=== PATIENT | male | born 1960 | race Two or more races ===

== ENCOUNTER 2017-06-29 11:20 | Emergency (ER) | payer MEDICARE, OTHER ==
[~2017-06-29] VITALS: Ht 165.1 cm; Wt 102.1 kg
[~2017-06-29 11:20] MED LIST: BUME2 PO; CEPH500 PO; INSR10I SC; INSULANPEN SC; METF500 PO; MUPI2TO TOP; POTCHL20ER PO
[2017-06-29 12:37] LABS: BASOPHILS ABSOLUTE AUTO 0.03 K/mm3 (0.00-0.23); BASOPHILS PERCENT AUTO 0 % (0-2); EOSINOPHILS ABSOLUTE AUTO 0.05 K/mm3 (0.00-0.68); EOSINOPHILS PERCENT AUTO 1 % (0-6); Hematocrit 37.4 % (37.0-53.0); Hemoglobin 12.6 g/dL (13.5-17.5); IMMATURE GRAN ABSOLUTE AUTO 0.03 K/mm3 (0.00-0.10); IMMATURE GRAN PERCENT AUTO 0 % (0-1); LYMPHOCYTES ABSOLUTE AUTO 1.44 K/mm3 (0.84-5.20); LYMPHOCYTES PERCENT AUTO 15 % (21-46); MONOCYTES ABSOLUTE AUTO 0.78 K/mm3 (0.16-1.47); MONOCYTES PERCENT AUTO 8 % (4-13); Mean Corpuscular HGB 30.1 pg (26.0-34.0); Mean Corpuscular HGB Conc 33.7 g/dL (31.5-36.5); Mean Corpuscular Volume 89 fL (80-100); Mean Platelet Volume 10.4 fL (9.1-12.4); NEUTROPHILS PERCENT AUTO 76 % (41-73); Platelet Count 372 K/mm3 (150-400); RDW Coefficient Variation 13.8 % (11.7-14.2); RDW Standard Deviation 44.8 fL (35.1-46.3); Red Blood Cell Count 4.19 M/mm3 (4.30-5.90); White Blood Cell Count 9.53 K/mm3 (4.00-11.30)
[2017-06-29 12:51] LABS: Albumin, Blood 3.5 g/dL (3.4-5.0); Albumin/Globulin Ratio 0.6 (0.8-1.8); Bilirubin, Total 0.5 mg/dL (0.1-1.0); Bun/Creatinine Ratio 7.6 (12.0-20.0); Creatinine, Blood 5.23 mg/dL (0.60-1.20); Globulin, Blood 5.8 g/dL (2.2-4.0); Potassium, Blood 4.1 mmol/L (3.5-5.5); Total Protein, Blood 9.3 g/dL (6.4-8.2)
[2017-06-29] MEDS ORDERED: Norco 5-325 Ta1 EACH PO (17:53)
[2017-06-29] MEDS ORDERED: Zithromax250 MG PO (17:53)
== END 2017-06-29 18:07 | disposition home or self-care (01) ==
LOC: ER 11:20
PROVIDERS: Emergency Medicine
DX: R09.1 Pleurisy (principal); I12.0 Hypertensive chronic kidney disease with stage 5 chronic kidney disease or end stage renal disease; E11.22 Type 2 diabetes mellitus with diabetic chronic kidney disease; N18.6 End stage renal disease; Z79.4 Long term (current) use of insulin; Z79.899 Other long term (current) drug therapy
CPT/HCPCS: 36415; 71046; 80053; 83690; 84484; 85025; 93005; 93010; 96374; 99283; J2405

== ENCOUNTER 2019-08-11 13:36 | Emergency (ER) | payer MEDICARE ==
[~2019-08-11] VITALS: Ht 165.1 cm; Wt 104.3 kg
[~2019-08-11 13:36] MED LIST changes: +Norco 5-325 Ta1 EACH PO; +Zithromax250 MG PO
[2019-08-11] MEDS ORDERED: ZOLOFT50 MG PO (14:44)
[2019-08-11] MEDS ORDERED: LOSA50 PO (14:44)
[2019-08-11] MEDS ORDERED: FURO80 PO (14:45)
[2019-08-11] MEDS ORDERED: VELPHORO500 MG PO (14:45)
[2019-08-11] MEDS ORDERED: Temazepam30 MG PO (14:45)
== END 2019-08-11 16:28 | disposition home or self-care (01) ==
LOC: ER 13:36
DX: T82.590A Other mechanical complication of surgically created arteriovenous fistula, initial encounter (principal); I10 Essential (primary) hypertension; E11.9 Type 2 diabetes mellitus without complications; Z99.2 Dependence on renal dialysis; Z79.4 Long term (current) use of insulin; Z79.899 Other long term (current) drug therapy
CPT/HCPCS: 93971; 99283-25

== ENCOUNTER 2020-05-16 12:12 | Emergency (ER) | payer MEDICARE ==
[~2020-05-16] VITALS: Ht 165.1 cm; Wt 105.0 kg
[~2020-05-16 12:12] MED LIST changes: +FURO80 PO; +HUMULIN R100 UNIT/2 SC; -INSR10I SC; +LOSA50 PO; +Temazepam30 MG PO; +VELPHORO500 MG PO; +ZOLOFT50 MG PO
[2020-05-16 12:47] LABS: BASOPHILS ABSOLUTE AUTO 0.04 K/mm3 (0.00-0.23); BASOPHILS PERCENT AUTO 0 % (0-2); EOSINOPHILS ABSOLUTE AUTO 0.18 K/mm3 (0.00-0.68); EOSINOPHILS PERCENT AUTO 2 % (0-6); Hematocrit 34.2 % (37.0-53.0); Hemoglobin 11.5 g/dL (13.5-17.5); IMMATURE GRAN ABSOLUTE AUTO 0.04 K/mm3 (0.00-0.10); IMMATURE GRAN PERCENT AUTO 0 % (0-1); LYMPHOCYTES ABSOLUTE AUTO 2.18 K/mm3 (0.84-5.20); LYMPHOCYTES PERCENT AUTO 22 % (21-46); MONOCYTES PERCENT AUTO 8 % (4-13); Mean Corpuscular HGB 31.9 pg (26.0-34.0); Mean Corpuscular HGB Conc 33.6 g/dL (31.5-36.5); Mean Corpuscular Volume 95 fL (80-100); Mean Platelet Volume 9.8 fL (9.1-12.4); NEUTROPHILS PERCENT AUTO 67 % (41-73); Platelet Count 414 K/mm3 (150-400); Red Blood Cell Count 3.61 M/mm3 (4.30-5.90); White Blood Cell Count 9.84 K/mm3 (4.00-11.30)
[2020-05-16 13:17] LABS: Albumin, Blood 3.3 g/dL (3.4-5.0); Albumin/Globulin Ratio 0.6 (0.8-1.8); Bilirubin, Total 0.3 mg/dL (0.1-1.0); Bun/Creatinine Ratio 7.4 (12.0-20.0); Calcium, Blood 9.1 mg/dL (8.5-10.1); Creatinine, Blood 4.44 mg/dL (0.60-1.20); Globulin, Blood 5.6 g/dL (2.2-4.0); Potassium, Blood 3.7 mmol/L (3.5-5.5); Total Protein, Blood 8.9 g/dL (6.4-8.2)
== END 2020-05-16 15:40 | disposition home or self-care (01) ==
LOC: ER 12:12
PROVIDERS: Emergency Medicine
DX: I95.9 Hypotension, unspecified (principal); S09.90XA Unspecified injury of head, initial encounter; E11.22 Type 2 diabetes mellitus with diabetic chronic kidney disease; N18.6 End stage renal disease; I10 Essential (primary) hypertension; Z99.2 Dependence on renal dialysis; Z79.899 Other long term (current) drug therapy; Z79.4 Long term (current) use of insulin
CPT/HCPCS: 70450; 80053; 84484; 85025; 93005; 93010; 99285-25

== ENCOUNTER 2020-07-17 13:03 | Emergency (ER) | payer MEDICARE ==
[~2020-07-17] VITALS: Ht 165.1 cm; Wt 106.6 kg
[2020-07-17] MEDS ORDERED: CALCIUM ACETAT667 M2 PO (13:40)
[2020-07-17] MEDS ORDERED: GABA100 PO (13:41)
[2020-07-17] MEDS ORDERED: TADA10TA PO (13:45)
[2020-07-17] MEDS ORDERED: FAMO40 PO (13:47)
[2020-07-17] MEDS ORDERED: MIDO5 PO (13:48)
[2020-07-17] MEDS ORDERED: SEMGLEE100 UNIT/1 SC (13:49)
[2020-07-17] MEDS ORDERED: Vitamin B-121000 MCG PO (13:52)
[2020-07-17] MEDS ORDERED: FISH OIL 1,2001 EAC4 PO (13:53)
[2020-07-17] MEDS ORDERED: VITAMIN D325 MC3 PO (13:53)
[2020-07-17] MEDS ORDERED: MERIBIN5 M1 PO (13:54)
[2020-07-17] MEDS ORDERED: Rena-Vite Tabl0.8 MG PO (13:55)
[2020-07-17] MEDS ORDERED: ZYRTEC10 M3 PO (14:02)
== END 2020-07-17 15:07 | disposition home or self-care (01) ==
LOC: ER 13:03
DX: L23.9 Allergic contact dermatitis, unspecified cause (principal); I10 Essential (primary) hypertension; E11.9 Type 2 diabetes mellitus without complications; Z79.4 Long term (current) use of insulin; Z79.899 Other long term (current) drug therapy
CPT/HCPCS: 99283; A9270

== ENCOUNTER 2021-04-03 02:56 | Inpatient (IN) | payer MEDICARE ==
[~2021-04-03] VITALS: Ht 165.1 cm; Wt 106.1 kg
[~2021-04-03 02:56] MED LIST changes: +CALCIUM ACETAT667 M2 PO; +FAMO40 PO; +FISH OIL 1,2001 EAC4 PO; +GABA100 PO; +MERIBIN5 M1 PO; +MIDO5 PO; +Rena-Vite Tabl0.8 MG PO; +SEMGLEE100 UNIT/1 SC; +TADA10TA PO; +VITAMIN D325 MC3 PO; +Vitamin B-121000 MCG PO; +ZYRTEC10 M3 PO
[2021-04-03 04:31] LABS: BASOPHILS ABSOLUTE AUTO 0.03 K/mm3 (0.00-0.23); BASOPHILS PERCENT AUTO 0 % (0-2); EOSINOPHILS ABSOLUTE AUTO 0.25 K/mm3 (0.00-0.68); EOSINOPHILS PERCENT AUTO 3 % (0-6); Hematocrit 29.8 % (37.0-53.0); Hemoglobin 10.1 g/dL (13.5-17.5); IMMATURE GRAN ABSOLUTE AUTO 0.02 K/mm3 (0.00-0.10); IMMATURE GRAN PERCENT AUTO 0 % (0-1); LYMPHOCYTES ABSOLUTE AUTO 2.33 K/mm3 (0.84-5.20); LYMPHOCYTES PERCENT AUTO 26 % (21-46); MONOCYTES ABSOLUTE AUTO 1.13 K/mm3 (0.16-1.47); MONOCYTES PERCENT AUTO 13 % (4-13); Mean Corpuscular HGB 31.1 pg (26.0-34.0); Mean Corpuscular HGB Conc 33.9 g/dL (31.5-36.5); Mean Corpuscular Volume 92 fL (80-100); Mean Platelet Volume 10.3 fL (9.1-12.4); NEUTROPHILS ABSOLUTE AUTO 5.29 K/mm3 (1.96-9.15); NEUTROPHILS PERCENT AUTO 59 % (41-73); Platelet Count 316 K/mm3 (150-400); RDW Coefficient Variation 13.5 % (11.7-14.2); RDW Standard Deviation 45.6 fL (35.1-46.3); Red Blood Cell Count 3.25 M/mm3 (4.30-5.90); White Blood Cell Count 9.05 K/mm3 (4.00-11.30)
[2021-04-03 05:04] LABS: Magnesium, Blood 2.5 mg/dL (1.6-2.4); Troponin I 0.207 ng/mL (0.000-0.040)
[2021-04-03 05:19] LABS: Albumin, Blood 3.1 g/dL (3.4-5.0); Albumin/Globulin Ratio 0.6 (0.8-1.8); Bilirubin, Total 0.3 mg/dL (0.1-1.0); Bun/Creatinine Ratio 8.8 (12.0-20.0); Calcium, Blood 8.8 mg/dL (8.5-10.1); Creatinine, Blood 8.86 mg/dL (0.60-1.20); Globulin, Blood 4.9 g/dL (2.2-4.0); Potassium, Blood 5.2 mmol/L (3.5-5.5)
--- NOTE | 2021-04-03 17:54 | NUR ---
PT ARRIVED FROM ER AND DIALYSIS. HTN HAS RESOLVED WITH DIALYSIS. PT A/O X4, ANSWERING QUESTIONS APPROPRIATELY WITH AID OF WEB SPECIALIST. PT DOES UNDERSTAND [place] WELL BUT DOES NOT SPEAK IT WELL. VSS. DENIES SOB OR CP. SKIN PWD AND INTACT. NADN. PT RESTING WELL IN BED TALKING ON PHONE AND WATCHING TV. GOOD APPETITE. TALKES PO MEDS W/O DIFF
[2021-04-04 05:08] LABS: BASOPHILS ABSOLUTE AUTO 0.04 K/mm3 (0.00-0.23); BASOPHILS PERCENT AUTO 0 % (0-2); EOSINOPHILS ABSOLUTE AUTO 0.21 K/mm3 (0.00-0.68); EOSINOPHILS PERCENT AUTO 2 % (0-6); Hematocrit 30.8 % (37.0-53.0); Hemoglobin 10.2 g/dL (13.5-17.5); IMMATURE GRAN ABSOLUTE AUTO 0.04 K/mm3 (0.00-0.10); IMMATURE GRAN PERCENT AUTO 0 % (0-1); LYMPHOCYTES ABSOLUTE AUTO 2.03 K/mm3 (0.84-5.20); LYMPHOCYTES PERCENT AUTO 18 % (21-46); MONOCYTES PERCENT AUTO 10 % (4-13); Mean Corpuscular HGB 30.7 pg (26.0-34.0); Mean Corpuscular HGB Conc 33.1 g/dL (31.5-36.5); Mean Corpuscular Volume 93 fL (80-100); Mean Platelet Volume 10.3 fL (9.1-12.4); NEUTROPHILS PERCENT AUTO 70 % (41-73); Platelet Count 308 K/mm3 (150-400); RDW Coefficient Variation 13.9 % (11.7-14.2); Red Blood Cell Count 3.32 M/mm3 (4.30-5.90); White Blood Cell Count 11.32 K/mm3 (4.00-11.30)
--- NOTE | 2021-04-04 05:35 | NUR ---
SHIFT SUMMARY PATIENT A AFGHAN SPEAKING ONLY WHO IS A&OX4 AND UP IND IN ROOM. HTN RETURNING POST HD AND PRN HYDRALIZNE AND LABETOLOL GIVEN WITH DECENT RELIEF. ORAL LASIX GIVEN AND ALSO HELPED WITH THIS. NSR IN THE 80'S. ON RA. NO PAIN OR DISTRESS NOTED UPON ASSESSMENT. TOLERATING CARDIAC DIET WITHOUT ISSUE. UP WITH STAND BY ASSIST IN ROOM AND NO DIZZINESS NOTED. VOIDING WELL PER URINAL WITH OLIGURIA R/T HD. NO ACUTE CONCERNS AT THIS TIME. АЛЕКСАНДР CONTINUE PLAN OF CARE UNTIL REPORT GIVEN TO GERRI PERSAUD.
[2021-04-04 06:16] LABS: Magnesium, Blood 2.7 mg/dL (1.6-2.4)
[2021-04-04 06:25] LABS: Anion Gap 10 mmol/L (6-16); Blood Urea Nitrogen 69 mg/dL (8-24); Bun/Creatinine Ratio 7.9 (12.0-20.0); CO2, Blood 28 mmol/L (21-32); Calcium, Blood 8.9 mg/dL (8.5-10.1); Chloride, Blood 96 mmol/L (98-108); Creatinine, Blood 8.69 mg/dL (0.60-1.20); Glomerular Filtration Rate 6 (60-); Glucose, Blood 117 mg/dL (70-99); Phosphorus, Blood 6.4 mg/dL (2.5-4.9); Sodium, Blood 134 mmol/L (136-145)
--- NOTE | 2021-04-04 18:25 | NUR ---
PT RECIEVED DIALYSIS TODAY FOR HYPERKALEMIA. PT'S BP HAS BEEN IN ACCEPTABLE RANGE T/O THE DAY, THERE WAS AN ADD ON OF CLONIDINE TO PT'S BP MEDICATIONS. PT A/O X4. PT INTERACTING WITH USE OF SON TO INTERPERIT. LS DIM T/O. DENIES CP OR SOB. PT ALSO WITH ADD ON OF ANTIBIOTICS FOR PNA. PT WAS MADE MEDICAL STATUS WITH TELE. OTHERWISE THERE WERE NO CHANGES THIS SHIFT
[2021-04-05 04:24] LABS: BASOPHILS ABSOLUTE AUTO 0.02 K/mm3 (0.00-0.23); BASOPHILS PERCENT AUTO 0 % (0-2); EOSINOPHILS ABSOLUTE AUTO 0.21 K/mm3 (0.00-0.68); EOSINOPHILS PERCENT AUTO 3 % (0-6); Hematocrit 31.4 % (37.0-53.0); Hemoglobin 10.4 g/dL (13.5-17.5); IMMATURE GRAN ABSOLUTE AUTO 0.01 K/mm3 (0.00-0.10); IMMATURE GRAN PERCENT AUTO 0 % (0-1); LYMPHOCYTES ABSOLUTE AUTO 2.42 K/mm3 (0.84-5.20); LYMPHOCYTES PERCENT AUTO 33 % (21-46); MONOCYTES ABSOLUTE AUTO 0.81 K/mm3 (0.16-1.47); MONOCYTES PERCENT AUTO 11 % (4-13); Mean Corpuscular HGB 30.7 pg (26.0-34.0); Mean Corpuscular HGB Conc 33.1 g/dL (31.5-36.5); Mean Corpuscular Volume 93 fL (80-100); Mean Platelet Volume 10.2 fL (9.1-12.4); NEUTROPHILS ABSOLUTE AUTO 3.79 K/mm3 (1.96-9.15); NEUTROPHILS PERCENT AUTO 52 % (41-73); Platelet Count 292 K/mm3 (150-400); RDW Coefficient Variation 14.2 % (11.7-14.2); RDW Standard Deviation 47.9 fL (35.1-46.3); Red Blood Cell Count 3.39 M/mm3 (4.30-5.90); White Blood Cell Count 7.26 K/mm3 (4.00-11.30)
--- NOTE | 2021-04-05 05:11 | NUR ---
PATIENT HAD SBP > 160 X 1, PRN HYDRALYZINE GIVEN ONE TIME WITH GOOD RESULT.
[2021-04-05 05:20] LABS: Magnesium, Blood 2.3 mg/dL (1.6-2.4)
[2021-04-05 05:37] LABS: Albumin, Blood 3.1 g/dL (3.4-5.0); Anion Gap 12 mmol/L (6-16); Blood Urea Nitrogen 58 mg/dL (8-24); Bun/Creatinine Ratio 7.1 (12.0-20.0); CO2, Blood 29 mmol/L (21-32); Calcium, Blood 9.6 mg/dL (8.5-10.1); Chloride, Blood 96 mmol/L (98-108); Creatinine, Blood 8.19 mg/dL (0.60-1.20); Glomerular Filtration Rate 7 (60-); Glucose, Blood 76 mg/dL (70-99); Phosphorus, Blood 5.8 mg/dL (2.5-4.9); Potassium, Blood 4.6 mmol/L (3.5-5.5); Sodium, Blood 137 mmol/L (136-145)
--- NOTE | 2021-04-05 09:48 | NUR ---
CARE ASSUMPTION THIS RN ASSUMED CARE AT 0700 FROM HATTIE PERSAUD. PATIENT IS A/OX4, AND IS DIVEHI SPEAKING ONLY. VSS. PATIENT IS MED NO TELE. PATIENT REPORTS NO CHEST PAIN, PAIN, OR SOB. FISTULA HAS A THRILL AND CAN HEAR. PATIENT IS INDEPEDENT IN THE ROOM. MD IN TO SEE PATIENT THIS MORNING AND PLAN IS TO POSSIBLY DISCHARGE HOME TODATY. CALL LIGHT WITHIN REACH AND BED IN LOWEST POSITION. WILL CONTINUE TO MONITOR AND PROVIDE CARE.
[2021-04-05] MEDS ORDERED: AZIT500 PO (14:02)
[2021-04-05] MEDS ORDERED: CATAPRES0.1 MG PO (14:03)
[2021-04-05] MEDS ORDERED: VISBIOME 112.51 EACH PO (14:04)
[2021-04-05] MEDS ORDERED: CEFD300 PO (14:04)
--- NOTE | 2021-04-05 15:40 | NUR ---
DISCHARGE THIS RN WITH THE ASSITANCE OF GUY BLACKMAN, PROVIDED PATIENT EDUCATION AND DISCHARGE INSTRUCTIONS. THIS RN TOOK OUT THE PATIENT IV. PATIENT IS AWAITING FOR HIS RIDE AND THEN WILL BE WALKED OUT TO THE RIDE.
--- NOTE | 2021-04-05 16:21 | NUR ---
DISCHARGE PATIENT LEFT APROX 1600 VIA WHEELCHAIR TO NIECE. PATIENT HAD ALL BELONGINGS. PATIENT WAS A/0X4. VSS. PATIENT HAD NO ACUTE CHANGES THIS SHIFT PRIOR TO DISCHARGE.
== END 2021-04-05 15:56 | disposition home or self-care (01) | DRG 304 ==
LOC: ER 02:56 → ERHOLD 06:32 → PCU 06:32
PROVIDERS: Internal Medicine Nephrology; Student in an Organized Health Care Education/Training Program; ADMIT Family Medicine
PROC: 5A1D70Z Performance of Urinary Filtration, Intermittent, Less than 6 Hours Per Day (ICD-10-PCS; principal; 2021-04-03)
PROC: 5A1D70Z Performance of Urinary Filtration, Intermittent, Less than 6 Hours Per Day (ICD-10-PCS; 2021-04-04)
DX: I16.1 Hypertensive emergency (principal); N18.6 End stage renal disease; I50.33 Acute on chronic diastolic (congestive) heart failure; J18.9 Pneumonia, unspecified organism; E87.1 Hypo-osmolality and hyponatremia; N25.81 Secondary hyperparathyroidism of renal origin; E11.22 Type 2 diabetes mellitus with diabetic chronic kidney disease; I13.2 Hypertensive heart and chronic kidney disease with heart failure and with stage 5 chronic kidney disease, or end stage renal disease; E66.9 Obesity, unspecified; E78.5 Hyperlipidemia, unspecified; D63.1 Anemia in chronic kidney disease; E87.70 Fluid overload, unspecified; E87.5 Hyperkalemia; R79.89 Other specified abnormal findings of blood chemistry; Z68.38 Body mass index [BMI] 38.0-38.9, adult; Z99.2 Dependence on renal dialysis; Z79.899 Other long term (current) drug therapy; Z79.4 Long term (current) use of insulin
CPT/HCPCS: 36415; 70450; 71046; 80053; 80069; 82947; 83735; 83880; 84484; 85025; 93005; 93010; 93306; 96372; 96374; 96375; 99285-25; A9270; J0360; J0696; J1644; J1815

== ENCOUNTER 2021-09-03 23:51 | Inpatient (IN) | payer MEDICARE ==
[~2021-09-03] VITALS: Ht 165.1 cm; Wt 104.0 kg
[~2021-09-03 23:51] MED LIST changes: +AZIT500 PO; +CATAPRES0.1 MG PO; +CEFD300 PO; -SEMGLEE100 UNIT/1 SC; +VISBIOME 112.51 EACH PO
[2021-09-04 00:26] LABS: BASOPHILS ABSOLUTE AUTO 0.03 K/mm3 (0.00-0.23); BASOPHILS PERCENT AUTO 0 % (0-2); EOSINOPHILS ABSOLUTE AUTO 0.08 K/mm3 (0.00-0.68); EOSINOPHILS PERCENT AUTO 1 % (0-6); Hematocrit 35.9 % (37.0-53.0); Hemoglobin 11.5 g/dL (13.5-17.5); IMMATURE GRAN ABSOLUTE AUTO 0.02 K/mm3 (0.00-0.10); IMMATURE GRAN PERCENT AUTO 0 % (0-1); LYMPHOCYTES PERCENT AUTO 8 % (21-46); MONOCYTES ABSOLUTE AUTO 0.94 K/mm3 (0.16-1.47); MONOCYTES PERCENT AUTO 11 % (4-13); Mean Corpuscular HGB 29.8 pg (26.0-34.0); Mean Corpuscular Volume 93 fL (80-100); Mean Platelet Volume 10.9 fL (9.1-12.4); NEUTROPHILS PERCENT AUTO 80 % (41-73); Platelet Count 214 K/mm3 (150-400); RDW Standard Deviation 51.4 fL (35.1-46.3); Red Blood Cell Count 3.86 M/mm3 (4.30-5.90); White Blood Cell Count 8.67 K/mm3 (4.00-11.30)
[2021-09-04 06:57] LABS: Albumin, Blood 3.5 g/dL (3.4-5.0); Albumin/Globulin Ratio 0.7 (0.8-1.8); Bilirubin, Total 0.4 mg/dL (0.1-1.0); Bun/Creatinine Ratio 7.9 (12.0-20.0); Calcium, Blood 9.1 mg/dL (8.5-10.1); Creatinine, Blood 8.51 mg/dL (0.60-1.20); Globulin, Blood 5.2 g/dL (2.2-4.0); Potassium, Blood 5.7 mmol/L (3.5-5.5); Total Protein, Blood 8.7 g/dL (6.4-8.2)
[2021-09-04 07:24] LABS: PCO2 Arterial 40.2 mmHg (35-45); PO2 Arterial 85.5 mmHg (80-100); pH Blood Arterial 7.34 (7.35-7.45)
[2021-09-04 07:25] LABS: Base Excess Venous 6.3 mmol/L; Bicarbonate Venous 28.3 mmol/L (24.0-30.0); PCO2 Venous 49.9 mmHg (38-42); PO2 Venous 30.9 mmHg (38-42)
[2021-09-04 07:30] LABS: Influenza A, PCR NEGATIVE (NEGATIVE); Influenza B, PCR NEGATIVE (NEGATIVE); Resp Syncytial Virus, PCR NEGATIVE (NEGATIVE)
[2021-09-04 07:48] LABS: SARS-Cov-2 (COVID-19) PCR, MMC POSITIVE (NEGATIVE)
[2021-09-04 08:20] LABS: Anti-Xa UFH, PHA Monitoring <0.10 IU/mL; International Normalized Ratio 1.23; Prothrombin Time Results 12.7 Sec (9.7-11.5)
[2021-09-04 08:27] LABS: Appearance, Urine Clear (Clear); Bilirubin, Urine Neg (Neg); Blood, Urine 4+ (Neg); Color, Urine Yellow (P-Yellow); Glucose Qualitative, Urine 2+ (Neg); Ketones, Urine Neg (Neg); Leukocyte Esterase, Urine Neg (Neg); Nitrite, Urine Neg (Neg); Protein, Urine 4+ (Neg); Source, Urine Clean Catch; Specific Gravity, Urine 1.015 (1.003-1.022); Urobilinogen, Urine NORM (Normal)
[2021-09-04 08:29] LABS: Bacteria Few /hpf; Squamous Epithelial Cells Rare /hpf (Few)
[2021-09-04 08:30] LABS: White Blood Cells, Urine 0-2 /hpf (0-5)
[2021-09-04 12:36] LABS: Bun/Creatinine Ratio 8.1 (12.0-20.0); Calcium, Blood 9.2 mg/dL (8.5-10.1); Creatinine, Blood 5.05 mg/dL (0.60-1.20)
[2021-09-05 03:36] LABS: Hematocrit 32.1 % (37.0-53.0); Hemoglobin 10.5 g/dL (13.5-17.5)
[2021-09-05 03:58] LABS: Albumin, Blood 3.1 g/dL (3.4-5.0); Anion Gap 10 mmol/L (6-16); Blood Urea Nitrogen 60 mg/dL (8-24); Bun/Creatinine Ratio 7.9 (12.0-20.0); CO2, Blood 32 mmol/L (21-32); Calcium, Blood 8.7 mg/dL (8.5-10.1); Chloride, Blood 92 mmol/L (98-108); Creatinine, Blood 7.63 mg/dL (0.60-1.20); Glomerular Filtration Rate 8 (60-); Glucose, Blood 86 mg/dL (70-99); Magnesium, Blood 2.5 mg/dL (1.6-2.4); Phosphorus, Blood 6.1 mg/dL (2.5-4.9); Potassium, Blood 4.8 mmol/L (3.5-5.5); Sodium, Blood 134 mmol/L (136-145)
[2021-09-05 08:58] LABS: BASOPHILS ABSOLUTE AUTO 0.03 K/mm3 (0.00-0.23); BASOPHILS PERCENT AUTO 1 % (0-2); EOSINOPHILS ABSOLUTE AUTO 0.01 K/mm3 (0.00-0.68); EOSINOPHILS PERCENT AUTO 0 % (0-6); Hematocrit 32.7 % (37.0-53.0); Hemoglobin 10.7 g/dL (13.5-17.5); IMMATURE GRAN ABSOLUTE AUTO 0.02 K/mm3 (0.00-0.10); IMMATURE GRAN PERCENT AUTO 0 % (0-1); LYMPHOCYTES ABSOLUTE AUTO 1.12 K/mm3 (0.84-5.20); LYMPHOCYTES PERCENT AUTO 22 % (21-46); MONOCYTES PERCENT AUTO 17 % (4-13); Mean Corpuscular HGB 30.3 pg (26.0-34.0); Mean Corpuscular HGB Conc 32.7 g/dL (31.5-36.5); Mean Corpuscular Volume 93 fL (80-100); Mean Platelet Volume 11.1 fL (9.1-12.4); NEUTROPHILS ABSOLUTE AUTO 3.08 K/mm3 (1.96-9.15); NEUTROPHILS PERCENT AUTO 60 % (41-73); Platelet Count 194 K/mm3 (150-400); RDW Coefficient Variation 15.3 % (11.7-14.2); Red Blood Cell Count 3.53 M/mm3 (4.30-5.90); White Blood Cell Count 5.16 K/mm3 (4.00-11.30)
[2021-09-05 09:21] LABS: CHOL/HDL RATIO 3.8; Cholesterol 158 mg/dL (50-200); HDL Cholesterol 42 mg/dL (>39); LDL/HDL RATIO 2.1; Low Density Lipoprotein Chol 87 mg/dL (0-110); Triglycerides 147 mg/dL (30-160); Very Low Density Lipoprot Chol 29 mg/dL (6-32)
[2021-09-06 03:34] LABS: BASOPHILS ABSOLUTE AUTO 0.02 K/mm3 (0.00-0.23); BASOPHILS PERCENT AUTO 1 % (0-2); EOSINOPHILS ABSOLUTE AUTO 0.01 K/mm3 (0.00-0.68); EOSINOPHILS PERCENT AUTO 0 % (0-6); Hematocrit 32.9 % (37.0-53.0); Hemoglobin 10.9 g/dL (13.5-17.5); IMMATURE GRAN ABSOLUTE AUTO 0.01 K/mm3 (0.00-0.10); IMMATURE GRAN PERCENT AUTO 0 % (0-1); LYMPHOCYTES PERCENT AUTO 36 % (21-46); MONOCYTES ABSOLUTE AUTO 0.66 K/mm3 (0.16-1.47); MONOCYTES PERCENT AUTO 16 % (4-13); Mean Corpuscular HGB 30.2 pg (26.0-34.0); Mean Corpuscular HGB Conc 33.1 g/dL (31.5-36.5); Mean Corpuscular Volume 91 fL (80-100); Mean Platelet Volume 10.9 fL (9.1-12.4); NEUTROPHILS ABSOLUTE AUTO 2.02 K/mm3 (1.96-9.15); NEUTROPHILS PERCENT AUTO 48 % (41-73); Platelet Count 211 K/mm3 (150-400); RDW Coefficient Variation 15.1 % (11.7-14.2); RDW Standard Deviation 51.5 fL (35.1-46.3); Red Blood Cell Count 3.61 M/mm3 (4.30-5.90); White Blood Cell Count 4.22 K/mm3 (4.00-11.30)
[2021-09-06 03:53] LABS: Albumin, Blood 3.2 g/dL (3.4-5.0); Albumin/Globulin Ratio 0.7 (0.8-1.8); Bilirubin, Total 0.4 mg/dL (0.1-1.0); Bun/Creatinine Ratio 7.3 (12.0-20.0); Calcium, Blood 8.6 mg/dL (8.5-10.1); Creatinine, Blood 7.77 mg/dL (0.60-1.20); Globulin, Blood 4.9 g/dL (2.2-4.0); Potassium, Blood 4.1 mmol/L (3.5-5.5); Total Protein, Blood 8.1 g/dL (6.4-8.2)
[2021-09-06] MEDS ORDERED: TRAM50 PO (18:38)
[2021-09-06] MEDS ORDERED: 1/2 NS 250ml250 ML (18:40)
[2021-09-06] MEDS ORDERED: CLOBET30L TOP (18:40)
[2021-09-07 07:56] LABS: Hematocrit 33.9 % (37.0-53.0)
[2021-09-07] MEDS ORDERED: AMOX875 PO (11:19)
[2021-09-07] MEDS ORDERED: VISBIOME 112.51 EACH PO (11:22)
[2021-09-07] MEDS ORDERED: CARV3.125 PO (11:26)
== END 2021-09-07 12:00 | disposition home or self-care (01) | DRG 193 ==
LOC: ER 23:51 → PCU 09-04 04:00
PROVIDERS: Internal Medicine Nephrology; Student in an Organized Health Care Education/Training Program; ADMIT Internal Medicine
PROC: 5A1D70Z Performance of Urinary Filtration, Intermittent, Less than 6 Hours Per Day (ICD-10-PCS; principal; 2021-09-04)
PROC: 8E0ZXY6 Isolation (ICD-10-PCS; 2021-09-04)
DX: J18.9 Pneumonia, unspecified organism (principal); U07.1 COVID-19; N18.6 End stage renal disease; I50.32 Chronic diastolic (congestive) heart failure; I13.2 Hypertensive heart and chronic kidney disease with heart failure and with stage 5 chronic kidney disease, or end stage renal disease; N25.81 Secondary hyperparathyroidism of renal origin; E87.1 Hypo-osmolality and hyponatremia; I24.8 Other forms of acute ischemic heart disease; R10.9 Unspecified abdominal pain; E87.70 Fluid overload, unspecified; E11.22 Type 2 diabetes mellitus with diabetic chronic kidney disease; D64.9 Anemia, unspecified; R60.1 Generalized edema; E87.5 Hyperkalemia; Z99.2 Dependence on renal dialysis; Z98.890 Other specified postprocedural states; Z79.2 Long term (current) use of antibiotics; Z79.4 Long term (current) use of insulin; Z79.899 Other long term (current) drug therapy; Z91.14 Patient's other noncompliance with medication regimen; Z88.8 Allergy status to other drugs, medicaments and biological substances
CPT/HCPCS: 0241U; 36415; 36600; 71045; 71260; 74176; 78452; 80048; 80053; 80061; 80069; 81001; 82803; 82947; 83036; 83605; 83690; 83735; 84132; 84484; 85014; 85018; 85025; 85379; 85520; 85610; 87040; 93005; 93010; 93017; 93306; 94761; 96374; 96375; 99285-25; A9270; A9500; C1751; J0280; J0360; J0456; J0610; J0696; J0881; J1644; J1815; J2405; J2785; J7030; J7050; Q9967

== ENCOUNTER → 2021-11-28 | Outpatient (CLI) | payer MEDICARE ==
[~2021-11-28] MED LIST changes: +1/2 NS 250ml250 ML; +AMOX875 PO; +CARV3.125 PO; +CLOBET30L TOP; +DOCU100 PO; +FLONASE ALLERG9.9 M2 NS; +TRAM50 PO
== END | disposition home or self-care (01) ==
LOC: LAB SHORT 14:48 → LAB 14:48
DX: L08.9 Local infection of the skin and subcutaneous tissue, unspecified (principal)
CPT/HCPCS: 87070; 87106; 87205

== ENCOUNTER 2021-12-04 01:23 | Day surgery (SDC) | payer MEDICARE | END 2021-12-04 23:40 | disposition home or self-care (01) | LOC: WOUND 01:23 | DX: E11.622 Type 2 diabetes mellitus with other skin ulcer (principal); L97.222 Non-pressure chronic ulcer of left calf with fat layer exposed; L97.212 Non-pressure chronic ulcer of right calf with fat layer exposed; I87.2 Venous insufficiency (chronic) (peripheral); E11.51 Type 2 diabetes mellitus with diabetic peripheral angiopathy without gangrene; E11.59 Type 2 diabetes mellitus with other circulatory complications; I11.0 Hypertensive heart disease with heart failure; I50.9 Heart failure, unspecified | CPT/HCPCS: A9270; G0463 ==

== ENCOUNTER 2021-12-11 02:03 | Day surgery (SDC) | payer MEDICARE | END 2021-12-11 23:25 | disposition home or self-care (01) | LOC: WOUND 02:03 | PROC: 2W1RX6Z Compression of Left Lower Leg using Pressure Dressing (ICD-10-PCS; principal; 2021-12-11) | PROC: 2W1QX6Z Compression of Right Lower Leg using Pressure Dressing (ICD-10-PCS; principal; 2021-12-11) | PROC: 0JBN0ZZ Excision of Right Lower Leg Subcutaneous Tissue and Fascia, Open Approach (ICD-10-PCS; principal; 2021-12-11) | DX: E11.51 Type 2 diabetes mellitus with diabetic peripheral angiopathy without gangrene (principal); L97.812 Non-pressure chronic ulcer of other part of right lower leg with fat layer exposed; I70.238 Atherosclerosis of native arteries of right leg with ulceration of other part of lower leg; L97.822 Non-pressure chronic ulcer of other part of left lower leg with fat layer exposed; I70.248 Atherosclerosis of native arteries of left leg with ulceration of other part of lower leg; N18.6 End stage renal disease; E11.22 Type 2 diabetes mellitus with diabetic chronic kidney disease; I87.2 Venous insufficiency (chronic) (peripheral); Z99.2 Dependence on renal dialysis | CPT/HCPCS: A9270 ==

== ENCOUNTER 2022-06-09 02:22 | Emergency (ER) | payer MEDICARE ==
[~2022-06-09] VITALS: Ht 165.1 cm; Wt 108.0 kg
[~2022-06-09 02:22] MED LIST changes: -CARV3.125 PO; +Carvedilol12.5 MG PO
[2022-06-09 03:29] LABS: BASOPHILS ABSOLUTE AUTO 0.06 K/mm3 (0.00-0.23); BASOPHILS PERCENT AUTO 1 % (0-2); EOSINOPHILS ABSOLUTE AUTO 0.16 K/mm3 (0.00-0.68); EOSINOPHILS PERCENT AUTO 2 % (0-6); Hematocrit 30.7 % (37.0-53.0); Hemoglobin 10.7 g/dL (13.5-17.5); IMMATURE GRAN ABSOLUTE AUTO 0.04 K/mm3 (0.00-0.10); IMMATURE GRAN PERCENT AUTO 0 % (0-1); LYMPHOCYTES ABSOLUTE AUTO 1.19 K/mm3 (0.84-5.20); LYMPHOCYTES PERCENT AUTO 11 % (21-46); MONOCYTES ABSOLUTE AUTO 1.27 K/mm3 (0.16-1.47); MONOCYTES PERCENT AUTO 12 % (4-13); Mean Corpuscular HGB 31.8 pg (26.0-34.0); Mean Corpuscular HGB Conc 34.9 g/dL (31.5-36.5); Mean Corpuscular Volume 91 fL (80-100); Mean Platelet Volume 11.6 fL (9.1-12.4); NEUTROPHILS ABSOLUTE AUTO 7.83 K/mm3 (1.96-9.15); NEUTROPHILS PERCENT AUTO 74 % (41-73); Platelet Count 193 K/mm3 (150-400); RDW Coefficient Variation 15.6 % (11.7-14.2); RDW Standard Deviation 51.8 fL (35.1-46.3); Red Blood Cell Count 3.36 M/mm3 (4.30-5.90); White Blood Cell Count 10.55 K/mm3 (4.00-11.30)
[2022-06-09 03:46] LABS: Albumin, Blood 3.2 g/dL (3.4-5.0); Albumin/Globulin Ratio 0.7 (0.8-1.8); Bilirubin, Total 2.7 mg/dL (0.1-1.0); Calcium, Blood 8.6 mg/dL (8.5-10.1); Creatinine, Blood 7.88 mg/dL (0.60-1.20); Globulin, Blood 4.9 g/dL (2.2-4.0); Potassium, Blood 4.5 mmol/L (3.5-5.5); Total Protein, Blood 8.1 g/dL (6.4-8.2)
== END 2022-06-09 06:23 | disposition home or self-care (01) ==
LOC: ER 02:22
PROVIDERS: Emergency Medicine
DX: R10.11 Right upper quadrant pain (principal); R11.2 Nausea with vomiting, unspecified; I13.2 Hypertensive heart and chronic kidney disease with heart failure and with stage 5 chronic kidney disease, or end stage renal disease; E11.22 Type 2 diabetes mellitus with diabetic chronic kidney disease; N18.6 End stage renal disease; I50.9 Heart failure, unspecified; Z99.2 Dependence on renal dialysis; Z79.899 Other long term (current) drug therapy
CPT/HCPCS: 36415; 74177; 76705; 80053; 83690; 84484; 85025; 93005; 93010; J2405; J3010; Q9967

== ENCOUNTER 2022-06-11 06:36 | Inpatient (IN) | payer MEDICARE ==
[~2022-06-11] VITALS: Ht 170.2 cm; Wt 113.4 kg
[2022-06-11 07:00] LABS: Calcium, Ionized (POC) 0.96 mmol/L (1.10-1.46); Chloride (POC) 90 mmol/L (98-108); Creatinine (POC) 8.9 mg/dL (0.8-1.3); Glucose (ISTAT POC) 99 mg/dL (70-99); Hemoglobin (POC) 11.9 g/dL (13.5-17.5); Potassium (POC) 4.4 mmol/L (3.5-5.5); Sodium (POC) 130 mmol/L (135-148); Total CO2 (POC) 31 mmol/L (21-32)
[2022-06-11 07:05] LABS: BASOPHILS ABSOLUTE AUTO 0.05 K/mm3 (0.00-0.23); BASOPHILS PERCENT AUTO 1 % (0-2); EOSINOPHILS ABSOLUTE AUTO 0.14 K/mm3 (0.00-0.68); EOSINOPHILS PERCENT AUTO 2 % (0-6); Hematocrit 30.6 % (37.0-53.0); Hemoglobin 10.6 g/dL (13.5-17.5); IMMATURE GRAN ABSOLUTE AUTO 0.05 K/mm3 (0.00-0.10); IMMATURE GRAN PERCENT AUTO 1 % (0-1); LYMPHOCYTES ABSOLUTE AUTO 0.82 K/mm3 (0.84-5.20); LYMPHOCYTES PERCENT AUTO 10 % (21-46); MONOCYTES ABSOLUTE AUTO 0.94 K/mm3 (0.16-1.47); MONOCYTES PERCENT AUTO 12 % (4-13); Mean Corpuscular HGB 32.1 pg (26.0-34.0); Mean Corpuscular HGB Conc 34.6 g/dL (31.5-36.5); Mean Corpuscular Volume 93 fL (80-100); Mean Platelet Volume 11.4 fL (9.1-12.4); NEUTROPHILS ABSOLUTE AUTO 6.09 K/mm3 (1.96-9.15); NEUTROPHILS PERCENT AUTO 75 % (41-73); Platelet Count 185 K/mm3 (150-400); RDW Coefficient Variation 15.9 % (11.7-14.2); RDW Standard Deviation 53.4 fL (35.1-46.3); White Blood Cell Count 8.09 K/mm3 (4.00-11.30)
[2022-06-11 07:21] LABS: PCO2 Arterial 54.4 mmHg (35-45); PO2 Arterial 172 mmHg (80-100); pH Blood Arterial 7.35 (7.35-7.45)
[2022-06-11 07:47] LABS: Albumin, Blood 3.2 g/dL (3.4-5.0); Albumin/Globulin Ratio 0.6 (0.8-1.8); Bilirubin, Total 2.1 mg/dL (0.1-1.0); Bun/Creatinine Ratio 9.7 (12.0-20.0); Calcium, Blood 8.4 mg/dL (8.5-10.1); Creatinine, Blood 8.33 mg/dL (0.60-1.20); Potassium, Blood 4.4 mmol/L (3.5-5.5); Total Protein, Blood 8.2 g/dL (6.4-8.2)
[2022-06-11 08:29] LABS: Source, Urine Straight Cath
[2022-06-11 08:38] LABS: Bilirubin, Urine Neg (Neg); Blood, Urine 3+ (Neg); Color, Urine Yellow (P-Yellow); Glucose Qualitative, Urine 1+ (Neg); Ketones, Urine Neg (Neg); Leukocyte Esterase, Urine 1+ (Neg); Nitrite, Urine Neg (Neg); Protein, Urine 4+ (Neg); Urobilinogen, Urine 2+ (Normal)
[2022-06-11 08:46] LABS: Appearance, Urine Hazy (Clear)
[2022-06-11 08:47] LABS: Bacteria Rare /hpf; Squamous Epithelial Cells Rare /hpf (Few)
[2022-06-11 11:11] LABS: Base Excess Venous 4.5 mmol/L; Bicarbonate Venous 27.3 mmol/L (24.0-30.0); PCO2 Venous 58.2 mmHg (38-42); pH Blood Venous 7.33 (7.34-7.37)
--- NOTE | 2022-06-11 13:00 | NUR ---
INITIAL ASSESSMENT: Patient arrived to PCU 11 via gurney and was slid over to the bed. Patient is resting with his eyes closed, easily awakens with verbali stimuli. Patient is turkmen speaking only, family at bedside. He is restless. LS CTA, he has sleep apnea per the family and is not well at wearing his C-Pap. HRR, SR in the 70s. BT+, ABD Distended. PPP, he has a small healing wound on the top of his right jim. He has a red/purple discoloration to BLE, PP faint. VSS. director behavioral health here to run patient. has signed consent. Bed alarm on for safety. Call light in reach.
[2022-06-11 13:35] LABS: U Amphetamine Screen Not Detected; U Barbituate Screen Not Detected; U Benzodiazapine Screen DETECTED; U Buprenorphine Screen Not Detected; U Cannabinoids Screen Not Detected; U Cocaine Screen Not Detected; U Methadone Screen Not Detected; U Methamphetamine Screen Not Detected; U Opiates Screen Not Detected; U Oxycodone Screen Not Detected; U Phencyclidine Screen Not Detected; U Propoxyphene Screen Not Detected
--- NOTE | 2022-06-11 18:11 | NUR ---
SHIFT SUMMARY: PT RESTING QUIETLY SINCE DIALYSIS COMPLETED (APPROX 4 L REMOVED), AROUSES EASILY TO STAFF IN ROOM, SPEAKS MINIMAL AMOUNT OF SPANISH (INTERPRETOR PHONE AT BEDSIDE). PT MEDICATED FOR C/O PAIN/CRAMPING TO BLE W/GOOD CONTROL. O2 SATS >92% ON RA, PT DENIES SOB. SR ON MONITOR, RATE IN 70s, PT DENIES CHEST PAIN. PT DENIES DINNER TRAY, TRAY PLACED IN PANTRY. INDWELLING CATHETER PATENT, DRAINING TO GRAVITY. WILL CONTINUE TO MONITOR AND TREAT ACCORDINGLY UNTIL CHANGE OF SHIFT.
[2022-06-11 19:28] LABS: Base Excess Venous 7.9 mmol/L; Bicarbonate Venous 30.8 mmol/L (24.0-30.0); PCO2 Venous 43.4 mmHg (38-42); pH Blood Venous 7.47 (7.34-7.37)
[2022-06-12 03:56] LABS: Hematocrit 31.3 % (37.0-53.0); Hemoglobin 10.9 g/dL (13.5-17.5)
[2022-06-12 04:21] LABS: Albumin, Blood 2.9 g/dL (3.4-5.0); Anion Gap 9 mmol/L (6-16); Blood Urea Nitrogen 61 mg/dL (8-24); CO2, Blood 29 mmol/L (21-32); Calcium, Blood 8.1 mg/dL (8.5-10.1); Chloride, Blood 89 mmol/L (98-108); Creatinine, Blood 6.79 mg/dL (0.60-1.20); Glomerular Filtration Rate 9 (60-); Glucose, Blood 142 mg/dL (70-99); Magnesium, Blood 2.4 mg/dL (1.6-2.4); Phosphorus, Blood 5.4 mg/dL (2.5-4.9); Potassium, Blood 4.4 mmol/L (3.5-5.5); Sodium, Blood 127 mmol/L (136-145)
--- NOTE | 2022-06-12 06:14 | NUR ---
PATIENT AO, SON AT BEDSIDE TO HELP WITH TRANSLATION. SR AND HYPERTENSIVE, REQUIRING PRN HYDRALZINE AND LABETOLOL TO MAINTAIN SYS <160. ROOM AIR WHILE AWAKE AND CPAP AT NIGHT. TOLERATING ADA DIET. MEJIAS CATHETER IN PLACE. BLOOD NOTED IN URINE OVERNIGHT. PATIENT OLIGURIC. Q2 BG CHECKS WITH D10 GTT INFUSING.
[2022-06-12] MEDS ORDERED: HYDRA25 PO (15:30)
[2022-06-12] MEDS ORDERED: MERIBIN5 MG PO (17:30)
[2022-06-12] MEDS ORDERED: HUMULIN R500 UNIT/2 SC (17:33)
--- NOTE | 2022-06-12 18:38 | NUR ---
DISCHARGE HOME PT A&O X4. VSS. SPO2 > 92% ON RA. DIALYSIS DONE TODAY. MEJIAS CATH DC'd. PT ABLE TO VOID POST MEJIAS REMOVAL. DISCHARGE INSTRUCTIONS REVIEWED W/ PT. PIV REMOVED.
== END 2022-06-12 18:50 | disposition home or self-care (01) | DRG 637 ==
LOC: ER 06:36 → PCU 09:52
PROVIDERS: Emergency Medicine; Internal Medicine Nephrology; Nurse Practitioner Acute Care; ADMIT Internal Medicine
PROC: 4A133R1 Monitoring of Arterial Saturation, Peripheral, Percutaneous Approach (ICD-10-PCS; principal; 2022-06-11)
PROC: 5A1D70Z Performance of Urinary Filtration, Intermittent, Less than 6 Hours Per Day (ICD-10-PCS; 2022-06-11)
DX: E11.649 Type 2 diabetes mellitus with hypoglycemia without coma (principal); G92.8 Other toxic encephalopathy; I13.2 Hypertensive heart and chronic kidney disease with heart failure and with stage 5 chronic kidney disease, or end stage renal disease; E87.1 Hypo-osmolality and hyponatremia; E72.20 Disorder of urea cycle metabolism, unspecified; I50.22 Chronic systolic (congestive) heart failure; N18.6 End stage renal disease; N25.81 Secondary hyperparathyroidism of renal origin; R77.8 Other specified abnormalities of plasma proteins; F32.A Depression, unspecified; I65.22 Occlusion and stenosis of left carotid artery; D63.1 Anemia in chronic kidney disease; E11.22 Type 2 diabetes mellitus with diabetic chronic kidney disease; I16.0 Hypertensive urgency; J44.9 Chronic obstructive pulmonary disease, unspecified; Z99.2 Dependence on renal dialysis; Z88.8 Allergy status to other drugs, medicaments and biological substances; Z79.899 Other long term (current) drug therapy
CPT/HCPCS: 36415; 36600; 51702; 70450; 70496; 70498; 71045; 80047; 80053; 80069; 81001; 82140; 82803; 82947; 83036; 83735; 84484; 85014; 85018; 85025; 87086; 93005; 93010; 94660; 96374-59; 96375-59; 99285-25; A9270; J0360; J0881; J1644; J1885; J2310; J7799; Q9967